=== PATIENT | female | born 1980 ===

== ENCOUNTER 2017-08-26 14:07 | Emergency (ER) | payer MEDICAID, OTHER ==
[2017-08-26 14:07] VITALS: BMI 21.7
[2017-08-26 14:21] VITALS: O2SAT 99
[2017-08-26] MEDS ORDERED: Sodium Chloride 0.9% 1,000 ML IV STA (14:52)
[2017-08-26] MEDS ORDERED: DiphenhydrAMINE 50 mg/ml Inj IVP STA (14:52)
--- NOTE | 2017-08-26 14:57 | ED PDOC ---
Arrival/HPI - General Chief Complaint: ENT Problem Time Seen by Provider: 08/26/17 14:34 Historian: Patient - History of Present Illness Narrative History of Present Illness (Text): 08/26/17 14:53 37 year old female, pmh including gastritis, nkda, last tetanus under 7 years ago, no recent cut wound, complaining of involuntary movement of the jaw and tongue x 2 hours. Pt. stated that she was driving, suddenly feel the abnormal contracture with twisted jaw/lip and tongue movement, no seizure like activities , no tremors, no urinary or bowel incontinence or retention, no rash, admits smoking marijuanna 3 days ago, no palpitation, no fever or chills, no chest pain , no numbness or tingling, no recent dental work, no other medical or psychological complaints. Past Medical History - Provider Review Nursing Documentation Reviewed: Yes - Infectious Disease Hx of Infectious Diseases: None - Tetanus Immunization Tetanus Immunization: Unknown - Reproductive Menopause: No - Past Medical History Past Medical History: No Previous - Cardiac Hx Cardiac Disorders: No - Pulmonary Hx Respiratory Disorders: No - Neurological Hx Neurological Disorder: No - HEENT Hx HEENT Disorder: No - Renal Hx Renal Disorder: No - Endocrine/Metabolic Hx Endocrine Disorders: No - Hematological/Oncological Hx Blood Disorders: No - Integumentary Hx Dermatological Disorder: No - Musculoskeletal/Rheumatological Hx Musculoskeletal Disorders: No - Genitourinary/Gynecological Hx Genitourinary Disorders: No - Psychiatric Hx Depression: Yes Hx Substance Use: Yes - Past Surgical History Past Surgical History: No Previous - Surgical History Hx Section: Yes - Anesthesia Hx Anesthesia: Yes Hx Anesthesia Reactions: No Hx Malignant Hyperthermia: No - Suicidal Assessment Feels Threatened In Home Enviroment: No Family/Social History - Physician Review Nursing Documentation Reviewed: Yes Family/Social History: Unknown Family HX Smoking Status: Light Smoker < 10 Cigarettes Daily Hx Alcohol Use: Yes Hx Substance Use: Yes Substance used: weed Hx Substance Use Treatment: No Allergies/Home Meds Allergies/Adverse Reactions: Allergies clams Allergy (Verified 04/09/16 18:46) RASH Review of Systems - Review of Systems Constitutional: absent: Fatigue, Fevers Eyes: absent: Vision Changes ENT: absent: Hearing Changes Respiratory: absent: SOB, Cough Cardiovascular: absent: Chest Pain Gastrointestinal: absent: Abdominal Pain, Nausea, Vomiting Skin: absent: Rash, Pruritis Neurological: Other (lip and tongue distortion noted ). absent: Headache, Dizziness, Focal Weakness, Gait Changes, Speech Changes, Facial Droop, Disequilibrium, Seizure Psychiatric: Anxiety. absent: Depression, Suicidal Ideation Physical Exam Vital Signs Reviewed: Yes Vital Signs Temp Pulse Resp BP Pulse Ox 08/26/17 16:07 98.3 F 78 18 134/74 99 08/26/17 14:17 99.1 F 120 H 20 104/68 99 Temperature: Afebrile Blood Pressure: Normal Pulse: Tachycardic Respiratory Rate: Normal Appearance: Positive for: Well-Appearing, Non-Toxic, Comfortable Pain Distress: None Mental Status: Positive for: Alert and Oriented X 3 - Systems Exam Head: Present: Atraumatic, Normocephalic Pupils: Present: PERRL Extroacular Muscles: Present: EOMI Conjunctiva: Present: Normal Ears: Present: NORMAL TM, Normal Canal. No: Erythema Mouth: Present: Moist Mucous Membranes Nose (External): Present: Atraumatic. No: Abrasion, Contusion, Laceration Nose (Internal): Present: Normal Inspection, No Active Bleeding. No: Rhinorrhea Neck: Present: Normal Range of Motion, Trachea Midline. No: Meningeal Signs, MIDLINE TENDERNESS, Paraspinal Tenderness, Lymphadenopathy Respiratory/Chest: Present: Clear to Auscultation, Good Air Exchange. No: Respiratory Distress, Accessory Muscle Use, Wheezes, Decreased Breath Sounds, Rales, Retracting, Rhonchi, Tachypneic, Tender to Palpation Cardiovascular: Present: Regular Rate and Rhythm, Normal S1, S2. No: Murmurs Abdomen: No: Tenderness, Distention, Peritoneal Signs, Rebound, Guarding Back: Present: Normal Inspection. No: CVA Tenderness, Midline Tenderness, Paraspinal Tenderness, Pain with Leg Raise, Decubitus Ulcer Upper Extremity: Present: Normal Inspection, Normal ROM, Neurovascularly Intact , Capillary Refill < 2s. No: Cyanosis, Edema, Tenderness, Swelling, Deformity Lower Extremity: Present: Normal Inspection, NORMAL PULSES, Normal ROM, Neurovascularly Intact, Capillary Refill < 2 s. No: Edema, Deformity Neurological: Present: GCS=15, CN II-XII Intact, Motor Func Grossly Intact, Gait Normal, Memory Normal, Other Skin: Present: Warm, Dry, Normal Color. No: Rashes Psychiatric: Present: Alert, Oriented x 3, Normal Insight, Normal Concentration Medical Decision Making ED Course and Treatment: 08/26/17 14:59 -labs/ua/uds -IVF/benadryl/valium -Observe and reassess 08/26/17 16:20 -Urine hcg is negative -Labs show no acute findings except potassium 3.5 with potassium 20meq po ordered -Urinalysis show no UTI -UDS ordered but she refused, cancelled -Pt. symptoms resolved with medication given, anxiety resolved, refused psychiatric evaluation, advised to avoid drug. -Discharge home with benadryl, baclofen, avoid driving or operating machine until you clear by your own pmd and neurologist for this symptoms resolved, return to the ER for any new or worsening signs or symptoms. - Lab Interpretations Lab Results: 08/26/17 15:32 08/26/17 15:32 Lab Results 08/26/17 15:32: Sodium 143, Potassium 3.5 L, Chloride 104, Carbon Dioxide 24, Anion Gap 19, BUN 12, Creatinine 0.9, Est GFR ( Amer) > 60, Est GFR (Non- Af Amer) > 60, Random Glucose 109, Calcium 9.2, Magnesium 1.8, Total Bilirubin 0.6, AST 33, ALT 37, Alkaline Phosphatase 62, Total Creatine Kinase 70, Total Protein 8.1, Albumin 4.5, Globulin 3.5, Albumin/Globulin Ratio 1.3 08/26/17 15:32: WBC 8.7 D, RBC 4.43, Hgb 14.6, Hct 40.1, MCV 90.5, MCH 33.0, MCHC 36.4, RDW 13.8, Plt Count 299, MPV 8.9, Gran % 55.5, Lymph % (Auto) 32.9, Garvin % (Auto) 8.8 H, Eos % (Auto) 2.0, Baso % (Auto) 0.8, Gran # 4.80, Lymph # ( Auto) 2.9, Garvin # (Auto) 0.8 H, Eos # (Auto) 0.2, Baso # (Auto) 0.07 08/26/17 15:11: Urine Color Yellow, Urine Appearance Sl cloudy, Urine pH 6.0, Ur Specific [place] 1.015, Urine Protein Negative, Urine Glucose (UA) Negative, Urine Ketones Negative, Urine Blood Large H, Urine Nitrate Negative, Urine Bilirubin Negative, Urine Urobilinogen 0.2, Ur Leukocyte Esterase Negative, Urine RBC Negative, Urine WBC Negative, Ur Epithelial Cells 4 - 5, Urine Bacteria Small I have reviewed the lab results: Yes Interpretation: Abnormal lab values - Medication Orders Current Medication Orders: Discontinued Medications Diazepam (Valium) 5 mg PO ONCE ONE PRN Reason: Protocol Stop: 08/26/17 14:54 Last Admin: 08/26/17 15:26 Dose: 5 mg Diphenhydramine HCl (Benadryl) 50 mg IVP STAT STA Stop: 08/26/17 14:53 Last Admin: 08/26/17 15:26 Dose: 50 mg IVP Administration Document 08/26/17 15:26 EWO (Rec: 08/26/17 15:26 [id number] Charges for Administration # of IVP Administrations 1 Sodium Chloride (Sodium Chloride 0.9%) 1,000 mls @ 999 mls/hr IV .Q1H1M STA Stop: 08/26/17 15:52 Last Admin: 08/26/17 15:26 Dose: 999 mls/hr eMAR Start Stop Document 08/26/17 15:26 EWO (Rec: 08/26/17 15:26 [id number] Intravenous Solution Start Date 08/26/17 Start Time 15:26 End Date 08/26/17 End time 16:26 Total Infusion Time 60 Potassium Chloride (K-Dur 20 Meq Er Tab) 20 meq PO STAT STA Stop: 08/26/17 15:58 - PA / WELDER / Resident Statement / has reviewed & agrees with the documentation as recorded. Disposition/Present on Arrival - Present on Arrival Any Indicators Present on Arrival: No History of DVT/PE: No History of Uncontrolled Diabetes: No Urinary Catheter: No History of Decub. Ulcer: No History Surgical Site Infection Following: None - Disposition Have Diagnosis and Disposition been Completed?: Yes Diagnosis: Dystonia Disposition: HOME/ ROUTINE Disposition Time: 14:59 Patient Plan: Discharge Patient Problems: Current Active Problems Problem Status Onset Dystonia Acute Condition: IMPROVED Discharge Instructions (ExitCare): Dystonia Additional Instructions: -Discharge home with benadryl, baclofen, avoid driving or operating machine until you clear by your own pmd and neurologist for this symptoms resolved, return to the ER for any new or worsening signs or symptoms. Prescriptions: Baclofen [Lioresal] 5 mg PO TID PRN #21 tab PRN Reason: Other DiphenhydrAMINE [Benadryl] 50 mg PO QID #30 cap Referrals: Chloe George MD [Primary Care Provider] - Follow up with primary Yuli Terry MD [Staff Provider] - Follow up with primary Janet Morrison MD [Staff Provider] - Follow up with primary Forms: WORK NOTE
[2017-08-26 15:29] LABS: URINE BILIRUBIN NEGATIVE (NEGATIVE); URINE BLOOD LARGE (NEGATIVE); URINE GLUCOSE (UA) NEGATIVE (NEGATIVE); URINE LEUKOCYTE ESTERASE NEGATIVE Leu/uL (NEGATIVE); URINE PROTEIN NEGATIVE mg/dL (<30 mg/dL); URINE UROBILINOGEN 0.2 E.U./dL (<1 E.U./dL)
[2017-08-26 15:33] LABS: URINE APPEARANCE SL CLOUDY (CLEAR); URINE COLOR YELLOW (YELLOW)
[2017-08-26 15:49] LABS: BASO # 0.07 K/mm3 (0.0-2.0); BASO % 0.8 % (0.0-3.0); EOS # 0.2 (0.0-0.7); GRAN # 4.8 (1.4-6.5); GRAN % 55.5 % (50.0-68.0); HEMOGLOBIN 14.6 g/dL (12.0-16.0); LYMPH # 2.9 (1.2-3.4); LYMPH % 32.9 % (22.0-35.0); MEAN CELL VOLUME 90.5 fl (80.0-105.0); MEAN CORPUSCULAR HGB CONC 36.4 g/dl (31.0-37.0); MEAN PLATELET VOLUME 8.9 fl (7.0-11.0); MONO # 0.8 (0.1-0.6); MONO % 8.8 % (1.0-6.0); RBC 4.43 10^6/uL (3.5-6.1); RED CELL DISTRIBUTION WIDTH 13.8 % (11.5-14.5); WHITE BLOOD COUNT 8.7 10^3/ul (4.5-11.0)
[2017-08-26 15:53] LABS: ALB/GLOB RATIO 1.3 (1.1-1.8); ALBUMIN 4.5 g/dL (3.0-4.8); ALT/SGPT 37 U/L (7-56); AST/SGOT 33 U/L (14-36); BLOOD UREA NITROGEN 12 mg/dL (7-21); CALCIUM 9.2 mg/dL (8.4-10.5); GFR AFRICAN-AMERICAN > 60; GFR NON-AFRICAN AMERICAN > 60
[2017-08-26] MEDS ORDERED: Potassium Chloride 20 mEq ER Tab PO STA (15:57)
[2017-08-26 16:07] VITALS: PULSE 78; RESP 18
[2017-08-26 16:13] LABS: URINE BACTERIA SMALL (NEG); URINE RBC NEGATIVE /hpf (0-2); URINE WBC NEGATIVE /hpf (0-6)
[2017-08-26 16:36] VITALS: BP 120/79; TEMP 98.9
== END 2017-08-26 16:34 | disposition home or self-care (01) ==
LOC: ED 14:07
DX: G24.9 Dystonia, unspecified (principal); F17.210 Nicotine dependence, cigarettes, uncomplicated
CPT/HCPCS: 80053; 81001; 82550; 83735; 85025; 96361; 96374; 99282; J1200; J7030